=== PATIENT | male | born 1960 | race Caucasian/White ===

== ENCOUNTER 2025-03-29 13:46 | Emergency (ER) | payer MEDICARE ==
[2025-03-29] MEDS ORDERED: predniSONE 20 MG TAB ONE (14:51)
== END 2025-03-29 15:02 ==
LOC: NAV ERS 13:46
DX: M19.032 Primary osteoarthritis, left wrist (principal); F17.210 Nicotine dependence, cigarettes, uncomplicated
CPT/HCPCS: 99283; J7512